=== PATIENT | male | born 1975 | race Caucasian/White ===

== ENCOUNTER 2023-06-19 14:30 | Emergency (ER) | payer BC, OTHER ==
[2023-06-19 14:38] VITALS: BP 135/89; PULSE 64; RESP 18; TEMP 98; BMI 25.7
[2023-06-19 15:20] LABS: HEMATOCRIT 39.8 % (35.4-49); HEMOGLOBIN 13.7 G/dL (11.7-16.9); MCH 30.6 pg (25.7-33.7); MCHC 34.4 g/dl (32.0-35.9); MEAN PLT VOLUME 8.9 fl (7.5-11.1); PLATELET COUNT 250.3 10^3/uL (134-434); RBC 4.47 10^6/uL (4.00-5.60); RDW 13.9 % (11.9-15.9)
[2023-06-19] MEDS ORDERED: ASPIRIN 325 MG TABLET PO ONE (15:22)
[2023-06-19] MEDS ORDERED: ASPIRIN 325 MG TABLET ONE (15:29)
[2023-06-19 15:31] LABS: ALBUMIN 4.4 g/dl (3.4-5.0); BILIRUBIN,TOTAL 0.5 mg/dl (0.2-1); BLOOD UREA NITROGEN 22.6 mg/dl (7-18); CALCIUM 8.8 mg/dl (8.5-10.1); CREATININE 0.8 mg/dl (0.6-1.3); MAGNESIUM 1.8 mg/dL (1.8-2.4); PHOSPHOROUS 3.31 (2.5-4.9); POTASSIUM 4.2 mmol/L (3.5-5.1); SGOT/AST 24.2 U/L (15-37); SGPT/ALT 22.6 U/L (7-52); TOT PROT 6.6 g/dl (6.4-8.2)
[2023-06-19 15:55] LABS: INR 1.06 (0.83-1.09); PROTHROMBIN TIME (PATIENT) 12.3 SEC (9.7-13.0)
[2023-06-19 15:57] LABS: ACTIVATED PTT 32.1 SECONDS (25.2-36.5)
[2023-06-19 15:58] LABS: PLATELET ESTIMATE ADEQUATE
== END 2023-06-19 15:30 | disposition left against medical advice (07) ==
LOC: FER 14:30
DX: R07.2 Precordial pain (principal); R06.02 Shortness of breath
CPT/HCPCS: 36415; 71046-TC-FY; 80053; 83690; 83735; 84100; 84484; 85027; 85379; 85610; 85730; 93005; 99285-25